=== PATIENT | male | born 1990 | race Caucasian/White ===

== ENCOUNTER 2017-04-26 03:56 | Emergency (ER) | payer MEDICAID ==
[~2017-04-26] VITALS: Ht 172.7 cm; Wt 69.0 kg
[2017-04-26 04:01] VITALS: BP 141/100
== END 2017-04-26 06:00 | disposition left against medical advice (07) ==
LOC: ER 04:01
DX: Z04.8 Encounter for examination and observation for other specified reasons (principal); R51 Headache; J34.89 Other specified disorders of nose and nasal sinuses; Z53.21 Procedure and treatment not carried out due to patient leaving prior to being seen by health care provider

== ENCOUNTER 2017-06-25 14:59 | Emergency (ER) | payer MEDICAID ==
[~2017-06-25] VITALS: Ht 170.2 cm; Wt 70.0 kg
[2017-06-25 15:02] VITALS: BP 131/71
== END 2017-06-25 17:22 | disposition left against medical advice (07) ==
LOC: ER 14:59
DX: R04.0 Epistaxis (principal); Z53.21 Procedure and treatment not carried out due to patient leaving prior to being seen by health care provider